=== PATIENT | female | born 1995 ===

== ENCOUNTER 2021-11-19 14:18 | Outpatient (CLI) | payer OTHER | END 2021-11-19 16:45 | disposition home or self-care (01) | LOC: PRENATAL 14:18 | PROVIDERS: ATTEND Obstetrics & Gynecology Maternal & Fetal Medicine | DX: O35.0XX1 Maternal care for (suspected) central nervous system malformation in fetus, fetus 1 (principal); O35.3XX1 Maternal care for (suspected) damage to fetus from viral disease in mother, fetus 1; O98.512 Other viral diseases complicating pregnancy, second trimester; Z36.89 Encounter for other specified antenatal screening; Z3A.24 24 weeks gestation of pregnancy ==

== ENCOUNTER 2022-01-26 09:53 | Outpatient (CLI) | payer OTHER | END 2022-01-26 11:35 | disposition home or self-care (01) | LOC: PRENATAL 09:53 | PROVIDERS: ATTEND Obstetrics & Gynecology Maternal & Fetal Medicine | DX: O26.849 Uterine size-date discrepancy, unspecified trimester (principal); O35.0XX0 Maternal care for (suspected) central nervous system malformation in fetus, not applicable or unspecified; O36.8199 Decreased fetal movements, unspecified trimester, other fetus ==